=== PATIENT | female | born 1950 | race Caucasian/White ===

== ENCOUNTER → 2024-03-27 10:33 | Outpatient (REF) | payer MEDICARE, SELFPAY ==
--- NOTE | 2024-03-27 10:41 | CA_ITS ---
Transthoracic Echocardiogram Patient (Last, First, Middle): Chelle Jackson, Gender: Female Date of : 1950 Age: 73 Procedure Date: 03/27/2024 Procedure Type: Transthoracic Echocardiogram Location: OP Height: 152. cm Weight: 57.15 kg BSA: 1.53 m2 Heart Rate: 82 bpm BP: 110 / 70 mmHg Assistant Director Of Financial Aid: RYDER Buck MD: Chepe Smyth MD Plate Washer: Celio Zepeda MD Symptoms: 107.1 RHEUMATIC TRICUSPID INSUFFICIENCY Study Quality: Adequate ECG Rhythm: Sinus Conclusions: - 1. Hyperdynamic LV ejection fraction with grade 1 diastolic dysfunction 2. Normal cardiac valvular Doppler 3. Mild tricuspid regurgitation with RV systolic pressure is within normal limits 4. No pericardial effusion Findings Left Ventricle Normal left ventricular cavity size. There is normal left ventricular wall thickness. The left ventricular systolic function is hyperdynamic. The visually estimated ejection fraction is >70%. Spectral Doppler is indicative of an impaired relaxation filling pattern. E/E prime ratio is <8, consistent with normal filling pressures. Evidence suggests grade I (mild) diastolic dysfunction. Right Ventricle Normal right ventricular cavity size and systolic function. Atria Both atria are normal in size. There is no evidence of interatrial shunt. Aortic Valve Normal aortic valve structure and function. There is no aortic valve stenosis. There is no aortic valve regurgitation. Mitral Valve Normal mitral valve structure and function. There is trace mitral valve regurgitation. There is no mitral valve stenosis. Pulmonic Valve The pulmonic valve is likely normal. There is trace pulmonic valve regurgitation. Tricuspid Valve Normal tricuspid valve structure. There is mild tricuspid valve regurgitation. The right ventricular systolic pressure is normal. The right ventricular systolic pressure is 35 mmHg. Normal right atrial pressure. There is no evidence of pulmonary hypertension. Great Vessels All visible segments of the aorta are normal in size. The pulmonary artery was not well visualized. There is no dilatation of the ascending aorta measuring 3.30 cm. Venous The inferior vena cava is normal in size and collapses greater than 50% with inspiration. Pericardium/Pleural There is no evidence of pericardial effusion. Prior Study Comparison No prior study available for comparison. Measurements 2D Linear Measurements IVSd: 1.06 0.6-0.9/0.6-1.0 cm LVIDd: 3.22 3.9-5.3/4.2-5.9 cm LVIDd Index: 2.10 2.4-3.2/2.2-3.1 cm/m2 LVIDs: 1.72 2.0-3.6 cm LVPWd: 0.81 0.7-1.1 cm LA Diam: 2.90 2.7-3.8/3.0-4.0 cm LAIDs Index: 1.90 1.5-2.3 cm/m2 LV Mass: 102.02 67-162/88-224 g LV Mass Index: 66.68 43-95/49-115 g/m2 LVOT Diam: 1.80 3.0+(-)1.3 cm 2D Systolic Function EF 4C: 67.50 >55% EF 2C: 73.90 >55% EF BiP: 71.30 >55% Mitral Valve MV Pk E: 0.68 MV PK A: 1.04 MV Decel Time: 330.00 E/A: 0.70 E'Lateral: 8.16 E'Medial: 6.31 E/E' Med: 10.80 E/E' Lat: 8.40 PHT: 97.00 MVA PHT: 2.27 Decel Pettis: 2.07 Aortic Valve AoV Pk Eyad: 1.41 AoV Mn Eyad: 0.96 AoV VTI: 0.25 AoV Pk Grad: 8.00 Aov Mn Grad: 4.00 MARYELLEN Cont.VTI: 1.96 LVOT LVOT Pk Eyad: 1.10 LVOT Mn Eyad: 0.70 LVOT VTI: 0.19 LVOT Pk Grad: 5.00 LVOT Mn Grad: 2.00 LVOT Diam: 1.80 LVOT Area: 2.54 Diastolic Function MV Pk E: 0.68 MV Pk A: 1.04 E/A: 0.70 E'Medial: 6.31 E/E' Med: 10.80 E' Laterial: 8.16 E/E' Lat: 8.40 Right Ventricle TAPSE (mm): 19.30 TVS' Eyad: 10.90 Tricuspid Valve TR Pk Eyad: 2.65 TR Pk Grad: 32.00 RA Press: 3.00 RVSP: 35.00 Great Vessels Aorta Sinus of Valsalva: 3.20 2.0-3.5 cm Ao Asc: 3.30 2.1-3.4 cm Pulmonary Valve PV Pk Eyad: 1.07 Peak PV Grad: 5.00 Updated in Other Vendor System with Status of Final Celio Zepeda MD electronically signed on 03/27/2024 12:59:22 PM with status of Final
== END ==
LOC: HO.CARD 10:33
PROVIDERS: PCP Internal Medicine; Visit Provider Internal Medicine
DX: I36.1 Nonrheumatic tricuspid (valve) insufficiency (principal)
CPT/HCPCS: 93306

== ENCOUNTER → 2024-03-27 10:41 | Outpatient (BNV) | payer MEDICARE, SELFPAY | PROVIDERS: PCP Internal Medicine; Visit Provider Internal Medicine Cardiovascular Disease | DX: I07.1 Rheumatic tricuspid insufficiency (principal); I42.8 Other cardiomyopathies | CPT/HCPCS: 93306 ==